=== PATIENT | female | born 1980 | race Caucasian/White ===

== ENCOUNTER 2016-11-30 17:33 | Emergency (ER) | payer OTHER ==
[~2016-11-30] VITALS: Ht 165.1 cm; Wt 71.7 kg
[~2016-11-30 17:33] MED LIST: PREN1TAB81 PO
[2016-11-30 17:58] VITALS: BP 152/99
[2016-11-30] MEDS ORDERED: KETOROLAC TROMETHAMINE INJ 60 MG/2 ML VIAL IM ONE (18:30)
[2016-11-30] MEDS ORDERED: KETOROLAC TROMETHAMINE INJ 30 MG/ML VIAL ONE (18:33)
[2016-11-30] MEDS ORDERED: DIAZEPAM 5 MG TABLET ONE (19:27)
[2016-11-30] MEDS ORDERED: DIAZEPAM 5 MG TABLET PO ONE (20:00)
== END 2016-11-30 19:47 | disposition home or self-care (01) ==
LOC: EDUNIT# 17:33 → ER 17:38
DX: S16.1XXA Strain of muscle, fascia and tendon at neck level, initial encounter (principal); F32.9 Major depressive disorder, single episode, unspecified; R51 Headache; F41.9 Anxiety disorder, unspecified; Z90.49 Acquired absence of other specified parts of digestive tract; V49.50XA Passenger injured in collision with unspecified motor vehicles in traffic accident, initial encounter; Y93.89 Activity, other specified; Y92.89 Other specified places as the place of occurrence of the external cause; Y99.9 Unspecified external cause status
CPT/HCPCS: 72040; 96372; 99284; A4606; J1885; Z7610

== ENCOUNTER 2020-03-06 23:16 | Emergency (ER) | payer MEDICAID, OTHER ==
[~2020-03-06] VITALS: Ht 165.1 cm; Wt 72.6 kg
--- NOTE | 2020-03-06 23:20 | NUR ---
PT PRESENTED TO THE ER WITH A C/O SYNCOPE X 2. POS KO. PT STATED THAT SHE DOES NOT REMEMBER. PT STATED THAT SHE FEELS DIZZY WHEN SHE WALKS. PT AMBULATED TO THE BATHROOM AND TRIED TO GIVE A URINE SAMPLE. SMALL AMOUNT OF URINE NOTED. PT AMBULATED BACK TO ER 1 WITH A SLOW STEADY GAIT.
--- NOTE | 2020-03-06 23:34 | NUR ---
PT STATED THAT SHE FEELS DIZZY. PT WAS RECONNECTED TO THE MONITOR AND CONTINUOUS PULSE OX.
--- NOTE | 2020-03-06 23:37 | NUR ---
18G IV STARTED IN RAC. BLOOD WAS DRAWN AND SENT TO LAB.
[2020-03-06 23:51] LABS: BASOPHILS % (AUTO) 0.2 % (0.0-2.0); EOSINOPHILS % (AUTO) 0.8 % (0.0-6.0); HEMATOCRIT 41 % (33-45); HEMOGLOBIN 13.3 g/dL (11.5-14.8); LYMPHOCYTES # (AUTO) 1.6 /CMM (0.8-4.8); LYMPHOCYTES % (AUTO) 9.7 % (20.0-44.0); MEAN CORPUSCULAR HGB CONC 32 g/dl (31.0-36.0); MEAN CORPUSCULAR VOLUME 87 fL (82-100); MONOCYTES # (AUTO) 0.6 /CMM (0.1-1.30); MONOCYTES % (AUTO) 3.7 % (2.0-12.0); NEUTROPHILS # (AUTO) 14.5 /CMM (1.8-8.9); NEUTROPHILS % (AUTO) 85.6 % (43.0-81.0); PLATELET COUNT (AUTO) 289 /CMM (150-450); RED BLOOD CELL COUNT(AUTO) 4.73 MIL/uL (4.0-5.2); WHITE BLOOD COUNT (AUTO) 16.9 K/uL (4.3-11.0)
[2020-03-07] MEDS ORDERED: IV NS 0.9% 1,000 ML BAG IV ONE
[2020-03-07 00:13] LABS: CALCIUM, SERUM 8.8 mg/dL (8.5-10.1); CARBON DIOXIDE 26 mmol/L (21-32); CHLORIDE 103 mmol/L (98-107); CREATININE 0.9 mg/dL (0.6-1.3); GLUCOSE 113 mg/dL (74-106); POTASSIUM 3.3 mmol/L (3.5-5.1); SODIUM SERUM 137 mmol/L (136-145); UREA NITROGEN, BLOOD 15 mg/dL (7-18)
[2020-03-07 00:19] LABS: ALANINE AMINOTRANSFERASE 17 U/L (12-78); ALBUMIN 4.2 g/dL (3.4-5.0); ALKALINE PHOSPHATASE 59 U/L (46-116); ASPARTATE AMINOTRANSFERASE 16 U/L (15-37); BILIRUBIN,DIRECT 0.1 mg/dL (0.0-0.2); BILIRUBIN,TOTAL 0.5 mg/dL (0.2-1.0)
[2020-03-07 00:44] VITALS: BP 110/69
--- NOTE | 2020-03-07 00:45 | NUR ---
IV removed. Catheter intact and site benign. Pressure and 4x4 applied to site. No bleeding noted. DPatient discharged to home in stable condition. Written and verbal after care instructions given. Patient verbalizes understanding of instruction. PT'S SISTER IS TAKING THE PT HOME. VSS.
== END 2020-03-07 00:46 | disposition home or self-care (01) ==
LOC: ER 23:22
DX: R55 Syncope and collapse (principal); R11.0 Nausea; R19.7 Diarrhea, unspecified; R41.0 Disorientation, unspecified; Z98.890 Other specified postprocedural states; Z90.89 Acquired absence of other organs; Z79.899 Other long term (current) drug therapy
CPT/HCPCS: 36415; 80048; 80076; 82962; 84484; 84703; 85025; 93005; 96360; 99284; J7030

== ENCOUNTER 2020-03-08 15:25 | Emergency (ER) | payer MEDICAID, OTHER ==
[~2020-03-08] VITALS: Ht 165.1 cm; Wt 72.6 kg
[2020-03-08 15:49] VITALS: BP 136/77
--- NOTE | 2020-03-08 15:55 | NUR ---
PT SEEN AND EXAMINED BY .
--- NOTE | 2020-03-08 16:10 | NUR ---
PT COVID SWAB OBTAINED AND SENT TO LAB.
--- NOTE | 2020-03-08 16:23 | NUR ---
Patient discharged to home in stable condition. Written and verbal after care instructions given. Patient verbalizes understanding of instruction.
== END 2020-03-08 16:24 | disposition home or self-care (01) ==
LOC: ER 15:30
DX: B34.9 Viral infection, unspecified (principal); Z20.828 Contact with and (suspected) exposure to other viral communicable diseases; Z98.84 Bariatric surgery status
CPT/HCPCS: 99283; C9803; U0003